=== PATIENT | male | born 1945 | race Caucasian/White ===

== ENCOUNTER 2019-10-26 20:01 | Inpatient (IN) | payer MEDICARE, MEDICAID ==
[~2019-10-26] VITALS: Ht 172.7 cm; Wt 99.9 kg
[2019-10-26] MEDS ORDERED: PROPOFOL 1000 MG/ISO-OSM 100 ML IV PRN (20:08)
[2019-10-26 21:19] LABS: D-DIMER 0.58 mg/L FEU (0.00-0.50); INR 1.1 (0.9-1.1); PROTHROMBIN TIME 10.9 SEC (9.4-11.6)
[2019-10-26 21:19] LABS: ABG A-A DIFF O2 591.9 mmHg (10-20.0); ABG BASE EXCESS -6.4 mmol/L (-2.0-3.0); ABG CARBOXYHEMOGLOBIN 0.4 % (0.0-1.5); ABG HCO3 19.6 mmol/L (22.0-26.0); ABG METHEMOGLOBIN 0.3 % (0.0-1.5); ABG OXYGEN CONTENT 20.2 mL/dL (15.0-23.0); ABG OXYGEN SATURATION 95.9 % (95.0-98.0); ABG OXYHEMOGLOBIN 95.2 % (94.0-100.0); ABG PCO2 40 mmHg (35-45); ABG TOTAL HEMOGLOBIN 15.1 G/dL (12.0-18.0); PO2, ARTERIAL BG 80.7 mmHg (75.0-83.0); SOURCE, BLOOD GAS ARTERIAL; TEMPERATURE, FAHRENHEIT, BG 98.6 FAHREN (96.0-98.6)
[2019-10-26 21:19] LABS: BASOPHILS % (AUTO) 0.4 % (0.0-2.0); EOSINOPHILS % (AUTO) 0.1 % (1.0-6.0); HEMATOCRIT 42.4 % (41-53); HEMOGLOBIN 14.5 g/dL (13.5-17.5); LYMPHOCYTES # (AUTO) 0.7 K/uL (1.0-4.8); LYMPHOCYTES % (AUTO) 9.9 % (22.0-44.0); MEAN CORPUSCULAR HEMOGLOBIN 30.5 pg (26.0-34.0); MEAN CORPUSCULAR HGB CONC 34.1 G/dL (31.0-37.0); MEAN CORPUSCULAR VOLUME 89 fL (80-100); MONOCYTES # (AUTO) 0.2 K/uL (0.1-1.0); MONOCYTES % (AUTO) 2.3 % (2.0-9.0); NEUTROPHILS # (AUTO) 5.8 K/uL (1.8-7.7); RED BLOOD CELL COUNT(AUTO) 4.75 MIL/uL (4.50-5.90); RED CELL DISTRIBUTION WIDTH 14.8 % (11.5-14.5)
[2019-10-26 21:20] LABS: ANION GAP 12 mmol/L (8-16); CALCIUM, TOTAL 8.2 mg/dL (8.8-10.5); CARBON DIOXIDE 23 mmol/L (22-29); CHLORIDE 104 mmol/L (98-107); GLOMERULAR FILTR. RATE CALC 46 mL/min (>60); GLUCOSE,RANDOM 125 mg/dL (70-110); POTASSIUM 4.4 mmol/L (3.5-5.1); SODIUM SERUM 139 mmol/L (136-145); UREA NITROGEN, BLOOD 35 mg/dL (7-18)
[2019-10-26 21:21] LABS: O2 DEVICE,BLOOD GAS VENTILATOR (ROOM AIR); PEEP,BG 12 cm H2O; SITE, BLOOD GAS LFT BRACHIAL; SPONTANEOUS VT, BG 460 ml; VT, ABG 450 ml
[2019-10-26 21:22] LABS: NEUTROPHILS % (AUTO) 87.3 % (40.0-70.0)
[2019-10-26 21:29] LABS: LACTIC ACID 2.4 mmol/L (0.4-2.0)
[2019-10-26 21:36] LABS: GLUCOSE,POINT OF CARE 121 MG/DL (70-110)
[2019-10-26 21:44] LABS: ALANINE AMINOTRANSFERASE 29 U/L (12-78); ALBUMIN 2.8 g/dL (3.4-5.0); ALKALINE PHOSPHATASE 116 U/L (46-116); ASPARTATE AMINOTRANSFERASE 67 U/L (15-37); BILIRUBIN,TOTAL 2.3 mg/dL (0.1-1.0); CREATINE KINASE, TOTAL ONLY 206 U/L (39-308); FERRITIN 668 ng/mL (26-388); LACTATE DEHYDROGENASE 472 U/L (85-227); PHOSPHORUS 4.1 mg/dL (2.5-4.9); TOTAL PROTEIN, SERUM 7.4 g/dL (6.4-8.2)
[2019-10-26] MEDS ORDERED: DEXTROSE 50%-WATER 25 GM/50 ML SYRINGE IVP PRN (22:15)
[2019-10-26] MEDS ORDERED: SODIUM CHLORIDE 0.9% 1,000 ML IV ONE (22:15)
[2019-10-26] MEDS ORDERED: ONDANSETRON HCL 4 MG/2 ML VIAL IVP PRN (22:15)
[2019-10-26] MEDS ORDERED: ACETAMINOPHEN 325 MG TABLET PO PRN (22:15)
[2019-10-26] MEDS ORDERED: SODIUM CHLORIDE 0.9% 500 ML IV ONE (22:15)
[2019-10-26] MEDS: NOREPINEPHRINE 4 MG/D5%-WATER 250 ML IV PRN (22:33)
[2019-10-26 22:39] LABS: ERYTHROCYTE SEDIMENTATION RATE 62 MM/HR (0-15)
[2019-10-26 22:46] LABS: PLATELET COUNT (AUTO) 93 K/uL (150-450)
[2019-10-26] MEDS ORDERED: AZITHROMYCIN 500 MG/NS 250 ML IV SCH (23:00)
[2019-10-27] VITALS (11 sets, daily range): BP systolic 85–137; BP diastolic 38–96
[2019-10-27] MEDS: HEPARIN SODIUM,PORCINE 5,000 UNITS/ML VIAL SQ SCH ×4 (04:09→23:44)
[2019-10-27] MEDS: FentaNYL CITRATE PF 500 MCG in DEXTROSE 5%-WATER 90 ML IV PRN ×2 (04:19→19:13)
[2019-10-27] MEDS: MIDAZOLAM HCL 100 MG in DEXTROSE 5%-WATER 180 ML IV PRN (04:21)
[2019-10-27] MEDS: NOREPINEPHRINE 4 MG/D5%-WATER 250 ML IV PRN ×3 (04:44→11:00)
[2019-10-27] MEDS: PROPOFOL 1000 MG/ISO-OSM 100 ML IV PRN ×4 (07:01→22:49)
[2019-10-27 07:43] LABS: GLUCOSE,POINT OF CARE 163 MG/DL (70-110)
[2019-10-27] MEDS: DOCUSATE SODIUM 100 MG CAPSULE PO SCH ×2 (07:46→20:58)
[2019-10-27 08:30] LABS: HEMATOCRIT 40.6 % (41-53); MEAN CORPUSCULAR HEMOGLOBIN 30.8 pg (26.0-34.0); MEAN CORPUSCULAR HGB CONC 34.5 G/dL (31.0-37.0); MEAN CORPUSCULAR VOLUME 89 fL (80-100); PLATELET COUNT (AUTO) 128 K/uL (150-450); RED BLOOD CELL COUNT(AUTO) 4.55 MIL/uL (4.50-5.90)
[2019-10-27 08:42] LABS: CALCIUM, TOTAL 7.4 mg/dL (8.8-10.5); CREATININE 1.33 mg/dL (0.60-1.30); POTASSIUM 4.3 mmol/L (3.5-5.1)
[2019-10-27 09:31] LABS: ABG A-A DIFF O2 435.2 mmHg (10-20.0); ABG BASE EXCESS -8.6 mmol/L (-2.0-3.0); ABG CARBOXYHEMOGLOBIN 0.2 % (0.0-1.5); ABG METHEMOGLOBIN 0.2 % (0.0-1.5); ABG OXYGEN CONTENT 20.6 mL/dL (15.0-23.0); ABG OXYGEN SATURATION 99.1 % (95.0-98.0); ABG OXYHEMOGLOBIN 98.7 % (94.0-100.0); ABG PCO2 41 mmHg (35-45); ABG PH 7.267 (7.35-7.450); ABG TOTAL HEMOGLOBIN 14.5 G/dL (12.0-18.0); PO2, ARTERIAL BG 237.5 mmHg (75.0-83.0); SOURCE, BLOOD GAS ARTERIAL
[2019-10-27 09:58] LABS: O2 DEVICE,BLOOD GAS VENTILATOR (ROOM AIR); PEEP,BG 12 cm H2O; SITE, BLOOD GAS A LINE; SPONTANEOUS VT, BG 432 ml; VT, ABG 450 ml
[2019-10-27] MEDS: PANTOPRAZOLE SODIUM 40 MG/VIAL IVP SCH (10:55)
[2019-10-27 11:31] LABS: BAND NEUTROPHILS % (MANUAL) 35 % (0-5); LYMPHOCYTES % (MANUAL) 8 % (22-44); MONOCYTES % (MANUAL) 3 % (2-9); SEGMENTED NEUTROPHILS % 54 % (40-70)
[2019-10-27 12:36] LABS: GLUCOSE,POINT OF CARE 172 MG/DL (70-110)
[2019-10-27] MEDS ORDERED: REMDESIVIR **INVESTIGATIONAL** 200 MG in SODIUM CHLORIDE 0.9% 210 ML IV ONE (15:00)
[2019-10-27] MEDS ORDERED: SODIUM CHLORIDE 0.9% 1,000 ML IV ONE (17:30)
[2019-10-27 18:47] LABS: GLUCOSE,POINT OF CARE 159 MG/DL (70-110)
[2019-10-28] VITALS: BP 101/44
[2019-10-28] MEDS: PROPOFOL 1000 MG/ISO-OSM 100 ML IV PRN ×2 (02:50→20:07)
[2019-10-28 04:00] VITALS: BP 128/45
[2019-10-28 06:03] LABS: BASOPHILS % (AUTO) 0.4 % (0.0-2.0); EOSINOPHILS % (AUTO) 0.2 % (1.0-6.0); HEMATOCRIT 36.5 % (41-53); HEMOGLOBIN 12.6 g/dL (13.5-17.5); LYMPHOCYTES # (AUTO) 0.8 K/uL (1.0-4.8); LYMPHOCYTES % (AUTO) 9.1 % (22.0-44.0); MEAN CORPUSCULAR HEMOGLOBIN 30.6 pg (26.0-34.0); MEAN CORPUSCULAR HGB CONC 34.6 G/dL (31.0-37.0); MEAN CORPUSCULAR VOLUME 89 fL (80-100); MONOCYTES # (AUTO) 0.2 K/uL (0.1-1.0); MONOCYTES % (AUTO) 2.4 % (2.0-9.0); NEUTROPHILS # (AUTO) 7.4 K/uL (1.8-7.7); PLATELET COUNT (AUTO) 106 K/uL (150-450); RED BLOOD CELL COUNT(AUTO) 4.12 MIL/uL (4.50-5.90); RED CELL DISTRIBUTION WIDTH 15.3 % (11.5-14.5)
[2019-10-28 06:37] LABS: ALBUMIN 2.1 g/dL (3.4-5.0); BILIRUBIN,TOTAL 2.3 mg/dL (0.1-1.0); C-REACTIVE PROTEIN QUANT 20.21 mg/dL (0.00-0.30); CALCIUM, TOTAL 7.2 mg/dL (8.8-10.5); CREATININE 1.21 mg/dL (0.60-1.30); POTASSIUM 4.4 mmol/L (3.5-5.1); TOTAL PROTEIN, SERUM 6.2 g/dL (6.4-8.2)
[2019-10-28 06:55] LABS: NEUTROPHILS % (AUTO) 87.9 % (40.0-70.0)
[2019-10-28 07:49] LABS: GLUCOSE,POINT OF CARE 131 MG/DL (70-110)
[2019-10-28 07:49] LABS: GLUCOSE,POINT OF CARE 144 MG/DL (70-110)
[2019-10-28 08:00] VITALS: BP 126/54
[2019-10-28] MEDS: HEPARIN SODIUM,PORCINE 5,000 UNITS/ML VIAL SQ SCH ×3 (08:00→23:31)
[2019-10-28] MEDS: PANTOPRAZOLE SODIUM 40 MG/VIAL IVP SCH (10:23)
[2019-10-28] MEDS: DOCUSATE SODIUM 100 MG CAPSULE PO SCH ×2 (10:24→20:04)
[2019-10-28 11:08] LABS: ABG A-A DIFF O2 316.7 mmHg (10-20.0); ABG BASE EXCESS -4.1 mmol/L (-2.0-3.0); ABG CARBOXYHEMOGLOBIN 0.7 % (0.0-1.5); ABG HCO3 21.4 mmol/L (22.0-26.0); ABG METHEMOGLOBIN 0.1 % (0.0-1.5); ABG OXYGEN SATURATION 92.2 % (95.0-98.0); ABG OXYHEMOGLOBIN 91.5 % (94.0-100.0); ABG PCO2 39 mmHg (35-45); ABG PH 7.357 (7.35-7.450); ABG TOTAL HEMOGLOBIN 13.2 G/dL (12.0-18.0); SOURCE, BLOOD GAS ARTERIAL; TEMPERATURE, FAHRENHEIT, BG 100.1 FAHREN (96.0-98.6)
[2019-10-28 12:00] VITALS: BP 118/56
[2019-10-28 14:53] LABS: SITE, BLOOD GAS A LINE
[2019-10-28 14:56] LABS: O2 DEVICE,BLOOD GAS VENTILATOR (ROOM AIR); PEEP,BG 10 cm H2O; SPONTANEOUS VT, BG 469 ml; VT, ABG 450 ml
[2019-10-28] MEDS: REMDESIVIR **INVESTIGATIONAL** 100 MG in SODIUM CHLORIDE 0.9% 230 ML IV SCH (15:12)
[2019-10-28 16:00] VITALS: BP 113/59
[2019-10-28] MEDS ORDERED: HEPARIN SODIUM,PORCINE 1,000 UNITS/ML VIAL ONE (16:51)
[2019-10-28 19:01] LABS: GLUCOSE,POINT OF CARE 147 MG/DL (70-110)
[2019-10-28] MEDS: FentaNYL CITRATE PF 500 MCG in DEXTROSE 5%-WATER 90 ML IV PRN (19:20)
[2019-10-28 20:00] VITALS: BP 131/49
[2019-10-28] MEDS: CISATRACURIUM BESYLATE 50 MG in DEXTROSE 5%-WATER 245 ML IV PRN ×2 (22:51→23:29)
[2019-10-28] MEDS: INSULIN LISPRO 100 UNITS/ML SQ PRN (23:58)
[2019-10-29] VITALS: BP 107/47
[2019-10-29 00:26] LABS: GLUCOSE,POINT OF CARE 186 MG/DL (70-110)
[2019-10-29] MEDS: PROPOFOL 1000 MG/ISO-OSM 100 ML IV PRN ×4 (00:27→22:01)
[2019-10-29 04:00] VITALS: BP 100/46
[2019-10-29 05:33] LABS: BASOPHILS % (AUTO) 0.4 % (0.0-2.0); EOSINOPHILS % (AUTO) 0.1 % (1.0-6.0); HEMATOCRIT 36.8 % (41-53); HEMOGLOBIN 12.6 g/dL (13.5-17.5); LYMPHOCYTES # (AUTO) 0.5 K/uL (1.0-4.8); LYMPHOCYTES % (AUTO) 6.5 % (22.0-44.0); MEAN CORPUSCULAR HEMOGLOBIN 30.4 pg (26.0-34.0); MEAN CORPUSCULAR HGB CONC 34.1 G/dL (31.0-37.0); MEAN CORPUSCULAR VOLUME 89 fL (80-100); MONOCYTES # (AUTO) 0.2 K/uL (0.1-1.0); MONOCYTES % (AUTO) 2.2 % (2.0-9.0); NEUTROPHILS # (AUTO) 7.6 K/uL (1.8-7.7); PLATELET COUNT (AUTO) 119 K/uL (150-450); RED BLOOD CELL COUNT(AUTO) 4.14 MIL/uL (4.50-5.90); RED CELL DISTRIBUTION WIDTH 15.7 % (11.5-14.5)
[2019-10-29] MEDS: INSULIN LISPRO 100 UNITS/ML SQ PRN (05:46)
[2019-10-29] MEDS: FentaNYL CITRATE PF 500 MCG in DEXTROSE 5%-WATER 90 ML IV PRN (05:50)
[2019-10-29 05:51] LABS: NEUTROPHILS % (AUTO) 90.8 % (40.0-70.0)
[2019-10-29 06:05] LABS: ALBUMIN 1.9 g/dL (3.4-5.0); BILIRUBIN,TOTAL 1.9 mg/dL (0.1-1.0); CALCIUM, TOTAL 7.4 mg/dL (8.8-10.5); CREATININE 1.36 mg/dL (0.60-1.30); POTASSIUM 4.7 mmol/L (3.5-5.1); TOTAL PROTEIN, SERUM 6.2 g/dL (6.4-8.2)
[2019-10-29] MEDS: CISATRACURIUM BESYLATE 50 MG in DEXTROSE 5%-WATER 245 ML IV PRN ×2 (07:00→19:44)
[2019-10-29 07:02] LABS: C-REACTIVE PROTEIN QUANT 24.62 mg/dL (0.00-0.30)
[2019-10-29 07:18] LABS: GLUCOSE,POINT OF CARE 145 MG/DL (70-110)
[2019-10-29 08:00] VITALS: BP 102/48
[2019-10-29] MEDS: PANTOPRAZOLE SODIUM 40 MG/VIAL IVP SCH (10:15)
[2019-10-29] MEDS: HEPARIN SODIUM,PORCINE 5,000 UNITS/ML VIAL SQ SCH (10:15)
[2019-10-29] MEDS: DOCUSATE SODIUM 100 MG CAPSULE PO SCH ×2 (10:15→19:54)
[2019-10-29] MEDS: ZINC SULFATE 220 MG CAPSULE PO SCH ×2 (11:42→19:55)
[2019-10-29 12:00] VITALS: BP 121/44
[2019-10-29] MEDS: REMDESIVIR **INVESTIGATIONAL** 100 MG in SODIUM CHLORIDE 0.9% 230 ML IV SCH (14:49)
[2019-10-29 16:00] VITALS: BP 97/38
[2019-10-29 20:00] VITALS: BP 113/48
[2019-10-30] VITALS (11 sets, daily range): BP systolic 96–152; BP diastolic 40–59
[2019-10-30 05:02] LABS: GLUCOSE,POINT OF CARE 201 MG/DL (70-110)
[2019-10-30] MEDS: PROPOFOL 1000 MG/ISO-OSM 100 ML IV PRN ×3 (05:11→22:40)
[2019-10-30] MEDS: CISATRACURIUM BESYLATE 50 MG in DEXTROSE 5%-WATER 245 ML IV PRN (06:02)
[2019-10-30] MEDS: INSULIN LISPRO 100 UNITS/ML SQ PRN ×3 (06:03→18:48)
[2019-10-30 06:19] LABS: BASOPHILS % (AUTO) 0.3 % (0.0-2.0); EOSINOPHILS % (AUTO) 0.3 % (1.0-6.0); HEMATOCRIT 38.1 % (41-53); HEMOGLOBIN 12.8 g/dL (13.5-17.5); LYMPHOCYTES # (AUTO) 0.4 K/uL (1.0-4.8); MEAN CORPUSCULAR HEMOGLOBIN 30.2 pg (26.0-34.0); MEAN CORPUSCULAR HGB CONC 33.6 G/dL (31.0-37.0); MEAN CORPUSCULAR VOLUME 90 fL (80-100); MONOCYTES # (AUTO) 0.2 K/uL (0.1-1.0); MONOCYTES % (AUTO) 3.1 % (2.0-9.0); NEUTROPHILS # (AUTO) 6.2 K/uL (1.8-7.7); PLATELET COUNT (AUTO) 120 K/uL (150-450); RED BLOOD CELL COUNT(AUTO) 4.24 MIL/uL (4.50-5.90); RED CELL DISTRIBUTION WIDTH 15.8 % (11.5-14.5)
[2019-10-30 06:52] LABS: NEUTROPHILS % (AUTO) 90.3 % (40.0-70.0)
[2019-10-30 07:12] LABS: ALBUMIN 1.8 g/dL (3.4-5.0); BILIRUBIN,TOTAL 1.8 mg/dL (0.1-1.0); C-REACTIVE PROTEIN QUANT 23.9 mg/dL (0.00-0.30); CALCIUM, TOTAL 7.5 mg/dL (8.8-10.5); CREATININE 1.25 mg/dL (0.60-1.30); TOTAL PROTEIN, SERUM 6.3 g/dL (6.4-8.2)
[2019-10-30] MEDS: HEPARIN SODIUM,PORCINE 5,000 UNITS/ML VIAL SQ SCH ×3 (08:09→17:18)
[2019-10-30] MEDS: DOCUSATE SODIUM 100 MG CAPSULE PO SCH ×2 (08:09→20:49)
[2019-10-30] MEDS: PANTOPRAZOLE SODIUM 40 MG/VIAL IVP SCH (08:09)
[2019-10-30 08:37] LABS: GLUCOMETER DEV NAME(LOC) 4E.2; GLUCOSE,POINT OF CARE 123 MG/DL (70-110)
[2019-10-30 08:37] LABS: GLUCOMETER DEV NAME(LOC) 4E.2; GLUCOSE,POINT OF CARE 129 MG/DL (70-110)
[2019-10-30 08:38] LABS: GLUCOMETER DEV NAME(LOC) 4E.2; GLUCOSE,POINT OF CARE 198 MG/DL (70-110)
[2019-10-30] MEDS: ZINC SULFATE 220 MG CAPSULE PO SCH ×2 (09:00→20:49)
[2019-10-30] MEDS: REMDESIVIR **INVESTIGATIONAL** 100 MG in SODIUM CHLORIDE 0.9% 230 ML IV SCH (14:00)
[2019-10-30] MEDS: FentaNYL CITRATE PF 500 MCG in DEXTROSE 5%-WATER 90 ML IV PRN (23:03)
[2019-10-30] MEDS ORDERED: 0.9% SODIUM CHLORIDE 15 ML NEB SOLUTION NEB ONE (23:48)
[2019-10-31] VITALS (11 sets, daily range): BP systolic 103–138; BP diastolic 42–91
[2019-10-31] MEDS: HEPARIN SODIUM,PORCINE 5,000 UNITS/ML VIAL SQ SCH ×3 (01:20→16:01)
[2019-10-31] MEDS: NOREPINEPHRINE 4 MG/D5%-WATER 250 ML IV PRN (02:31)
[2019-10-31] MEDS ORDERED: PROPOFOL 1000 MG/ISO-OSM 100 ML IV ONE (02:38)
[2019-10-31] MEDS: PROPOFOL 1000 MG/ISO-OSM 100 ML IV PRN ×4 (05:26→21:23)
[2019-10-31 05:33] LABS: GLUCOSE,POINT OF CARE 127 MG/DL (70-110)
[2019-10-31 05:49] LABS: HEMATOCRIT 38.6 % (41-53); HEMOGLOBIN 13.3 g/dL (13.5-17.5); MEAN CORPUSCULAR HEMOGLOBIN 30.8 pg (26.0-34.0); MEAN CORPUSCULAR HGB CONC 34.5 G/dL (31.0-37.0); MEAN CORPUSCULAR VOLUME 89 fL (80-100); PLATELET COUNT (AUTO) 141 K/uL (150-450); RED BLOOD CELL COUNT(AUTO) 4.33 MIL/uL (4.50-5.90); RED CELL DISTRIBUTION WIDTH 15.9 % (11.5-14.5)
[2019-10-31 06:01] LABS: GLUCOMETER DEV NAME(LOC) 4E.2; GLUCOSE,POINT OF CARE 154 MG/DL (70-110)
[2019-10-31 06:06] LABS: ALBUMIN 1.8 g/dL (3.4-5.0); BILIRUBIN,TOTAL 2.7 mg/dL (0.1-1.0); C-REACTIVE PROTEIN QUANT 23.11 mg/dL (0.00-0.30); CALCIUM, TOTAL 7.7 mg/dL (8.8-10.5); CREATININE 1.41 mg/dL (0.60-1.30); POTASSIUM 4.7 mmol/L (3.5-5.1); TOTAL PROTEIN, SERUM 6.3 g/dL (6.4-8.2)
[2019-10-31 06:58] LABS: BAND NEUTROPHILS % (MANUAL) 21 % (0-5); LYMPHOCYTES % (MANUAL) 6 % (22-44); MONOCYTES % (MANUAL) 1 % (2-9); SEGMENTED NEUTROPHILS % 72 % (40-70)
[2019-10-31 07:07] LABS: GLUCOMETER DEV NAME(LOC) 4E.2; GLUCOSE,POINT OF CARE 158 MG/DL (70-110)
[2019-10-31] MEDS: PANTOPRAZOLE SODIUM 40 MG/VIAL IVP SCH (09:45)
[2019-10-31] MEDS: ZINC SULFATE 220 MG CAPSULE PO SCH ×2 (09:46→21:09)
[2019-10-31] MEDS: FentaNYL CITRATE PF 500 MCG in DEXTROSE 5%-WATER 90 ML IV PRN (09:46)
[2019-10-31] MEDS: DOCUSATE SODIUM 100 MG CAPSULE PO SCH ×2 (09:48→21:09)
[2019-10-31 11:50] LABS: GLUCOMETER DEV NAME(LOC) 4E.2; GLUCOSE,POINT OF CARE 187 MG/DL (70-110)
[2019-10-31] MEDS: INSULIN LISPRO 100 UNITS/ML SQ PRN ×2 (13:03→18:09)
[2019-10-31] MEDS: REMDESIVIR **INVESTIGATIONAL** 100 MG in SODIUM CHLORIDE 0.9% 230 ML IV SCH (14:06)
[2019-10-31] MEDS: CISATRACURIUM BESYLATE 50 MG in DEXTROSE 5%-WATER 245 ML IV PRN (17:09)
[2019-10-31 18:19] LABS: GLUCOMETER DEV NAME(LOC) 4E.2; GLUCOSE,POINT OF CARE 167 MG/DL (70-110)
[2019-11-01] VITALS (7 sets, daily range): BP systolic 95–127; BP diastolic 42–64
[2019-11-01] MEDS: HEPARIN SODIUM,PORCINE 5,000 UNITS/ML VIAL SQ SCH ×4 (00:25→23:43)
[2019-11-01 01:00] LABS: GLUCOSE,POINT OF CARE 164 MG/DL (70-110)
[2019-11-01] MEDS: FentaNYL CITRATE PF 500 MCG in DEXTROSE 5%-WATER 90 ML IV PRN ×2 (02:18→19:52)
[2019-11-01] MEDS: CISATRACURIUM BESYLATE 50 MG in DEXTROSE 5%-WATER 245 ML IV PRN ×3 (02:24→21:10)
[2019-11-01] MEDS: MIDAZOLAM HCL 100 MG in DEXTROSE 5%-WATER 180 ML IV PRN (03:02)
[2019-11-01] MEDS: PROPOFOL 1000 MG/ISO-OSM 100 ML IV PRN ×5 (03:22→20:28)
[2019-11-01 05:49] LABS: HEMATOCRIT 42.2 % (41-53); HEMOGLOBIN 14.1 g/dL (13.5-17.5); MEAN CORPUSCULAR HEMOGLOBIN 30.5 pg (26.0-34.0); MEAN CORPUSCULAR HGB CONC 33.5 G/dL (31.0-37.0); MEAN CORPUSCULAR VOLUME 91 fL (80-100); PLATELET COUNT (AUTO) 132 K/uL (150-450); RED BLOOD CELL COUNT(AUTO) 4.64 MIL/uL (4.50-5.90); RED CELL DISTRIBUTION WIDTH 15.9 % (11.5-14.5)
[2019-11-01 06:19] LABS: GLUCOSE,POINT OF CARE 163 MG/DL (70-110)
[2019-11-01 06:34] LABS: ALBUMIN 1.8 g/dL (3.4-5.0); CALCIUM, TOTAL 7.9 mg/dL (8.8-10.5); CREATININE 1.69 mg/dL (0.60-1.30); POTASSIUM 5.6 mmol/L (3.5-5.1); TOTAL PROTEIN, SERUM 7.1 g/dL (6.4-8.2)
[2019-11-01] MEDS: INSULIN LISPRO 100 UNITS/ML SQ PRN ×3 (06:48→17:49)
[2019-11-01 06:52] LABS: C-REACTIVE PROTEIN QUANT 44.41 mg/dL (0.00-0.30)
[2019-11-01 07:04] LABS: GLUCOSE,POINT OF CARE 196 MG/DL (70-110)
[2019-11-01] MEDS ORDERED: SODIUM POLYSTYRENE SULFONATE 15 GM/60 ML SUSPENSION BOTTLE PR ONE (08:45)
[2019-11-01] MEDS: DOCUSATE SODIUM 100 MG CAPSULE PO SCH ×2 (09:00→21:00)
[2019-11-01] MEDS: ZINC SULFATE 220 MG CAPSULE PO SCH ×2 (09:17→21:00)
[2019-11-01] MEDS: PANTOPRAZOLE SODIUM 40 MG/VIAL IVP SCH (09:17)
[2019-11-01 11:36] LABS: BAND NEUTROPHILS % (MANUAL) 37 % (0-5); LYMPHOCYTES % (MANUAL) 8 % (22-44); MONOCYTES % (MANUAL) 4 % (2-9); SEGMENTED NEUTROPHILS % 51 % (40-70)
[2019-11-01] MEDS ORDERED: *CLINICAL-CEFEPIME DOSING CLINICAL ONE (14:00)
[2019-11-01] MEDS ORDERED: MetroNIDAZOLE 500 MG/NACL 100 ML IV SCH (14:00)
[2019-11-01] MEDS: NOREPINEPHRINE 4 MG/D5%-WATER 250 ML IV PRN ×2 (14:30→22:01)
[2019-11-01] MEDS: REMDESIVIR **INVESTIGATIONAL** 100 MG in SODIUM CHLORIDE 0.9% 230 ML IV SCH (14:46)
[2019-11-01] MEDS ORDERED: DAPTOMYCIN 450 MG in SODIUM CHLORIDE 0.9% 50 ML IV SCH (15:00)
[2019-11-01] MEDS ORDERED: SODIUM CHLORIDE 0.9% 500 ML IV ONE (15:38)
[2019-11-01] MEDS: CEFEPIME HCL 2 GM in DEXTROSE 5%-WATER 50 ML IV SCH (15:57)
[2019-11-01 17:31] LABS: GLUCOSE,POINT OF CARE 197 MG/DL (70-110)
[2019-11-01 17:54] LABS: GLUCOSE,POINT OF CARE 202 MG/DL (70-110)
[2019-11-01 20:02] LABS: APPEARANCE,URINE TURBID (CLEAR); GLUCOSE, URINE (UA) NEGATIVE (NEGATIVE); KETONES,URINE NEGATIVE (NEGATIVE); LEUKOCYTE ESTERASE ,URINE MODERATE (NEGATIVE); NITRATE,URINE NEGATIVE (NEGATIVE); OCCULT BLOOD,URINE NEGATIVE (NEGATIVE); PROTEIN,URINE POS 1+ (NEGATIVE)
[2019-11-01 20:04] LABS: BILIRUBIN,URINE PRELIM. POSITIVE (NEGATIVE)
[2019-11-01 20:16] LABS: RBC,URINE 0-2 /HPF (0-2)
[2019-11-01 20:17] LABS: BACTERIA,URINE Many /HPF (None Seen); WBC,URINE 26-50 /HPF (0-5)
[2019-11-01 20:18] LABS: SQUAMOUS EPITHELIAL CELL,UR Few /LPF (None Seen)
[2019-11-01] MEDS ORDERED: LEVOFLOXACIN 750 MG/D5% WATER 150 ML IV SCH (23:00)
[2019-11-01 23:33] LABS: GLUCOSE,POINT OF CARE 191 MG/DL (70-110)
[2019-11-02] VITALS: BP 117/53
[2019-11-02] MEDS: CISATRACURIUM BESYLATE 50 MG in DEXTROSE 5%-WATER 245 ML IV PRN ×4 (00:02→11:14)
[2019-11-02] MEDS: INSULIN LISPRO 100 UNITS/ML SQ PRN ×4 (00:04→19:01)
[2019-11-02] MEDS: PROPOFOL 1000 MG/ISO-OSM 100 ML IV PRN ×2 (00:51→06:13)
[2019-11-02] MEDS: CEFEPIME HCL 2 GM in DEXTROSE 5%-WATER 50 ML IV SCH (03:12)
[2019-11-02] MEDS: NOREPINEPHRINE 4 MG/D5%-WATER 250 ML IV PRN ×2 (03:19→17:06)
[2019-11-02 04:00] VITALS: BP 110/52
[2019-11-02 06:49] LABS: BILIRUBIN,TOTAL 3.5 mg/dL (0.1-1.0); CALCIUM, TOTAL 7.3 mg/dL (8.8-10.5); CREATININE 3.28 mg/dL (0.60-1.30); POTASSIUM 5.9 mmol/L (3.5-5.1)
[2019-11-02 07:22] LABS: ALBUMIN 1.4 g/dL (3.4-5.0); C-REACTIVE PROTEIN QUANT 26.28 mg/dL (0.00-0.30)
[2019-11-02 08:00] VITALS: BP 110/50
[2019-11-02 08:11] LABS: GLUCOMETER DEV NAME(LOC) 4E.2; GLUCOSE,POINT OF CARE 214 MG/DL (70-110)
[2019-11-02] MEDS ORDERED: SODIUM POLYSTYRENE SULFONATE 15 GM/60 ML SUSPENSION BOTTLE PR ONE (08:30)
[2019-11-02] MEDS: DOCUSATE SODIUM 100 MG CAPSULE PO SCH ×2 (09:33→21:20)
[2019-11-02] MEDS: HEPARIN SODIUM,PORCINE 5,000 UNITS/ML VIAL SQ SCH ×2 (09:33→16:00)
[2019-11-02] MEDS: PANTOPRAZOLE SODIUM 40 MG/VIAL IVP SCH (09:33)
[2019-11-02] MEDS: ZINC SULFATE 220 MG CAPSULE PO SCH ×2 (09:35→21:21)
[2019-11-02 12:00] VITALS: BP 92/39
[2019-11-02] MEDS ORDERED: *CLINICAL-RX DOSING [ENTER DRUG IN COMMENTS] CLINICAL ONE (12:00)
[2019-11-02 12:23] LABS: SOURCE, BLOOD GAS ARTERIAL; TEMPERATURE, FAHRENHEIT, BG 98.6 FAHREN (96.0-98.6)
[2019-11-02 12:28] LABS: ABG A-A DIFF O2 562.8 mmHg (10-20.0); ABG BASE EXCESS -15.7 mmol/L (-2.0-3.0); ABG CARBOXYHEMOGLOBIN 0.6 % (0.0-1.5); ABG HCO3 11.8 mmol/L (22.0-26.0); ABG METHEMOGLOBIN 0.6 % (0.0-1.5); ABG OXYGEN CONTENT 17.4 mL/dL (15.0-23.0); ABG OXYHEMOGLOBIN 88.9 % (94.0-100.0); ABG TOTAL HEMOGLOBIN 13.9 G/dL (12.0-18.0); PO2, ARTERIAL BG 68.8 mmHg (75.0-83.0)
[2019-11-02 12:29] LABS: ABG PH 6.931 (7.35-7.450)
[2019-11-02 12:30] LABS: ABG PCO2 81 mmHg (35-45); O2 DEVICE,BLOOD GAS VENTILATOR (ROOM AIR); SITE, BLOOD GAS A-LINE; VENT MODE, BG Press. Reg. Vol. Con (ROOM AIR)
[2019-11-02 12:31] LABS: PEEP,BG 8 cm H2O; VT, ABG 450 ml
[2019-11-02] MEDS ORDERED: MEROPENEM 1 GM in SODIUM CHLORIDE 0.9% 100 ML IV ONE (13:00)
[2019-11-02] MEDS ORDERED: HEPARIN SODIUM,PORCINE 1,000 UNITS/ML VIAL ONE (13:25)
[2019-11-02 13:30] LABS: GLUCOSE,POINT OF CARE 190 MG/DL (70-110)
[2019-11-02] MEDS: FentaNYL CITRATE PF 500 MCG in DEXTROSE 5%-WATER 90 ML IV PRN (13:53)
[2019-11-02] MEDS: SODIUM BICARBONATE 150 MEQ in DEXTROSE 5%-WATER 1,000 ML IV SCH (14:00)
[2019-11-02 14:57] LABS: ABG A-A DIFF O2 545.3 mmHg (10-20.0); ABG BASE EXCESS -15.9 mmol/L (-2.0-3.0); ABG CARBOXYHEMOGLOBIN 0.2 % (0.0-1.5); ABG METHEMOGLOBIN 0.5 % (0.0-1.5); ABG OXYGEN CONTENT 18.2 mL/dL (15.0-23.0); ABG OXYGEN SATURATION 95.9 % (95.0-98.0); ABG OXYHEMOGLOBIN 95.2 % (94.0-100.0); ABG TOTAL HEMOGLOBIN 13.5 G/dL (12.0-18.0); PO2, ARTERIAL BG 95.9 mmHg (75.0-83.0); SOURCE, BLOOD GAS ARTERIAL; TEMPERATURE, FAHRENHEIT, BG 98.6 FAHREN (96.0-98.6)
[2019-11-02 14:58] LABS: ABG PCO2 72 mmHg (35-45); ABG PH 6.964 (7.35-7.450); O2 DEVICE,BLOOD GAS VENTILATOR (ROOM AIR); PEEP,BG 14 cm H2O; SITE, BLOOD GAS A-LINE; VENT MODE, BG Press. Reg. Vol. Con (ROOM AIR); VT, ABG 450 ml
[2019-11-02] MEDS ORDERED: SODIUM BICARBONATE [ADULT] 8.4% 50 MEQ/50 ML SYRINGE IVP ONE (15:15)
[2019-11-02 16:00] VITALS: BP 90/44
[2019-11-02] MEDS ORDERED: SODIUM CHLORIDE 0.9% 500 ML IV ONE ×2 (16:51→17:13)
[2019-11-02 16:53] LABS: ABG A-A DIFF O2 539.4 mmHg (10-20.0); ABG BASE EXCESS -11.6 mmol/L (-2.0-3.0); ABG CARBOXYHEMOGLOBIN 0.1 % (0.0-1.5); ABG HCO3 15.4 mmol/L (22.0-26.0); ABG METHEMOGLOBIN 0.5 % (0.0-1.5); ABG OXYHEMOGLOBIN 97.4 % (94.0-100.0); ABG PCO2 54 mmHg (35-45); PO2, ARTERIAL BG 119.6 mmHg (75.0-83.0); SOURCE, BLOOD GAS ARTERIAL; TEMPERATURE, FAHRENHEIT, BG 98.6 FAHREN (96.0-98.6)
[2019-11-02 16:54] LABS: ABG PH 7.131 (7.35-7.450); O2 DEVICE,BLOOD GAS VENTILATOR (ROOM AIR); PEEP,BG 14 cm H2O; SITE, BLOOD GAS A-LINE; VENT MODE, BG Press. Reg. Vol. Con (ROOM AIR); VT, ABG 500 ml
[2019-11-02 17:15] LABS: POTASSIUM 6.1 mmol/L (3.5-5.1)
[2019-11-02 20:00] VITALS: BP 90/40
[2019-11-02 20:55] LABS: GLUCOMETER DEV NAME(LOC) 4E.2; GLUCOSE,POINT OF CARE 162 MG/DL (70-110)
[2019-11-02] MEDS ORDERED: PHENYLEPHRINE HCL 800 MG in DEXTROSE 5%-WATER 170 ML IV PRN (21:15)
[2019-11-03] VITALS: BP 94/43
[2019-11-03] MEDS: HEPARIN SODIUM,PORCINE 5,000 UNITS/ML VIAL SQ SCH (00:47)
[2019-11-03] MEDS: INSULIN LISPRO 100 UNITS/ML SQ PRN (00:48)
[2019-11-03] MEDS ORDERED: MEROPENEM 500 MG in SODIUM CHLORIDE 0.9% 50 ML IV SCH (01:00)
[2019-11-03 01:28] LABS: GLUCOSE,POINT OF CARE 166 MG/DL (70-110)
[2019-11-03] MEDS ORDERED: AMIODARONE HCL 150 MG in DEXTROSE 5%-WATER 97 ML IV ONE (01:45)
[2019-11-03] MEDS ORDERED: CISATRACURIUM BESYLATE 20 MG in DEXTROSE 5%-WATER 98 ML IV PRN (01:45)
[2019-11-03] MEDS ORDERED: AMIODARONE HCL 360 MG in DEXTROSE 5%-WATER 242.8 ML IV ONE (01:45)
[2019-11-03] MEDS ORDERED: SODIUM CHLORIDE 0.9% 250 ML IV ONE (02:14)
[2019-11-03] MEDS: VASOPRESSIN 40 UNITS in DEXTROSE 5%-WATER 98 ML IV PRN ×2 (02:22→02:35)
[2019-11-03] MEDS: DOPamine HCL 400 MG/D5%-WATER 250 ML IV PRN ×2 (02:23→06:16)
[2019-11-03] MEDS: CISATRACURIUM BESYLATE 50 MG in DEXTROSE 5%-WATER 245 ML IV PRN ×2 (02:24→06:17)
[2019-11-03] MEDS: NOREPINEPHRINE 4 MG/D5%-WATER 250 ML IV PRN ×2 (02:27→06:16)
[2019-11-03] MEDS ORDERED: EPINEPHrine 2 MG in DEXTROSE 5%-WATER 248 ML IV PRN ×2 (03:45→04:00)
[2019-11-03 03:56] LABS: SOURCE, BLOOD GAS ARTERIAL
[2019-11-03 03:59] LABS: ABG CARBOXYHEMOGLOBIN 0.7 % (0.0-1.5); ABG OXYHEMOGLOBIN 82.1 % (94.0-100.0)
[2019-11-03 04:00] VITALS: BP 76/40
[2019-11-03 04:02] LABS: ABG A-A DIFF O2 599.6 mmHg (10-20.0); ABG METHEMOGLOBIN 0.4 % (0.0-1.5); ABG OXYGEN CONTENT 17.7 mL/dL (15.0-23.0); ABG PCO2 58 mmHg (35-45); ABG PH 6.938 (7.35-7.450); ABG TOTAL HEMOGLOBIN 15.3 G/dL (12.0-18.0); PO2, ARTERIAL BG 57.3 mmHg (75.0-83.0)
[2019-11-03 04:03] LABS: ABG HCO3 9.7 mmol/L (22.0-26.0); O2 DEVICE,BLOOD GAS VENTILATOR (ROOM AIR); SITE, BLOOD GAS ARTERIAL LINE
[2019-11-03 04:04] LABS: PEEP,BG 16 cm H2O; VT, ABG 500 ml
[2019-11-03] MEDS: SODIUM BICARBONATE 150 MEQ in DEXTROSE 5%-WATER 1,000 ML IV SCH (04:16)
[2019-11-03 06:04] LABS: HEMATOCRIT 43.6 % (41-53); HEMOGLOBIN 14.1 g/dL (13.5-17.5); MEAN CORPUSCULAR HEMOGLOBIN 30.8 pg (26.0-34.0); MEAN CORPUSCULAR HGB CONC 32.3 G/dL (31.0-37.0); MEAN CORPUSCULAR VOLUME 96 fL (80-100); PLATELET COUNT (AUTO) 116 K/uL (150-450); RED BLOOD CELL COUNT(AUTO) 4.57 MIL/uL (4.50-5.90)
[2019-11-03 06:17] VITALS: BP 64/32
[2019-11-03 07:05] LABS: ALBUMIN 0.9 g/dL (3.4-5.0); BILIRUBIN,TOTAL 3.1 mg/dL (0.1-1.0); C-REACTIVE PROTEIN QUANT 18.58 mg/dL (0.00-0.30); CREATININE 4.04 mg/dL (0.60-1.30); TOTAL PROTEIN, SERUM 5.3 g/dL (6.4-8.2)
[2019-11-03 07:16] LABS: POTASSIUM 6.1 mmol/L (3.5-5.1)
[2019-11-03] MEDS ORDERED: AMIODARONE HCL 540 MG in DEXTROSE 5%-WATER 239.2 ML IV ONE (07:45)
[2019-11-03 09:30] LABS: BAND NEUTROPHILS % (MANUAL) 68 % (0-5); METAMYELOCYTES % 10 % (0-0); SEGMENTED NEUTROPHILS % 22 % (40-70)
[2019-11-03 09:32] LABS: CORRECTED WHITE BLOOD COUNT 32.3 K/uL (4.5-11.0)
[2019-11-04] MEDS ORDERED: AMIODARONE HCL 750 MG in DEXTROSE 5%-WATER 485 ML IV SCH (01:35)
== END 2019-11-03 06:50 | disposition expired | DRG 870 ==
LOC: EMS 20:01 → ICU 22:06
PROVIDERS: ADMIT Internal Medicine; ATTEND Internal Medicine
PROC: 0BH17EZ Insertion of Endotracheal Airway into Trachea, Via Natural or Artificial Opening (ICD-10-PCS; 2019-10-26)
PROC: 5A1955Z Respiratory Ventilation, Greater than 96 Consecutive Hours (ICD-10-PCS; 2019-10-26)
PROC: 302 Administration, Circulatory, Transfusion (ICD-10-PCS; 2019-10-27)
PROC: 05HY33Z Insertion of Infusion Device into Upper Vein, Percutaneous Approach (ICD-10-PCS; 2019-10-29)
PROC: B54MZZA Ultrasonography of Right Upper Extremity Veins, Guidance (ICD-10-PCS; 2019-10-29)
PROC: 05HM33Z Insertion of Infusion Device into Right Internal Jugular Vein, Percutaneous Approach (ICD-10-PCS; principal; 2019-10-31)
PROC: B543ZZA Ultrasonography of Right Jugular Veins, Guidance (ICD-10-PCS; 2019-10-31)
PROC: 03HY32Z Insertion of Monitoring Device into Upper Artery, Percutaneous Approach (ICD-10-PCS; 2019-10-31)
PROC: 4A133B1 Monitoring of Arterial Pressure, Peripheral, Percutaneous Approach (ICD-10-PCS; 2019-10-31)
PROC: 4A133J1 Monitoring of Arterial Pulse, Peripheral, Percutaneous Approach (ICD-10-PCS; 2019-10-31)
PROC: B34JZZZ Ultrasonography of Left Upper Extremity Arteries (ICD-10-PCS; 2019-10-31)
PROC: 06HY33Z Insertion of Infusion Device into Lower Vein, Percutaneous Approach (ICD-10-PCS; 2019-11-02)
PROC: 5A1D70Z Performance of Urinary Filtration, Intermittent, Less than 6 Hours Per Day (ICD-10-PCS; 2019-11-02)
PROC: 5A12012 Performance of Cardiac Output, Single, Manual (ICD-10-PCS; 2019-11-03)
DX: A41.9 Sepsis, unspecified organism (principal); U07.1 COVID-19; J12.89 Other viral pneumonia; J96.01 Acute respiratory failure with hypoxia; E43 Unspecified severe protein-calorie malnutrition; N17.9 Acute kidney failure, unspecified; Z99.11 Dependence on respirator [ventilator] status; K76.6 Portal hypertension; E87.1 Hypo-osmolality and hyponatremia; D68.59 Other primary thrombophilia; Z90.49 Acquired absence of other specified parts of digestive tract; Z87.891 Personal history of nicotine dependence; K74.60 Unspecified cirrhosis of liver; E87.5 Hyperkalemia; I95.9 Hypotension, unspecified; R80.9 Proteinuria, unspecified; E87.70 Fluid overload, unspecified; R13.10 Dysphagia, unspecified; I46.9 Cardiac arrest, cause unspecified; Z68.33 Body mass index [BMI] 33.0-33.9, adult
CPT/HCPCS: 36245; 36555; 36569; 36600; 51702; 76700; 76937; 80074; 82728; 82805; 83605; 83615; 83735; 84100; 84132; 84145; 85379; 85651; 86140; 86850; 86900; 86901; 86927; 87040; 87081; 87086; 87340; 92950; 93005; 93306; 93970; 94002; 94003; 99291; C9113; G0378; J0171; J0282; J0456; J0692; J0878; J1265; J1644; J1956; J2185; J2250; J2370; J2704; J3010; J3490; J7030; J7040; J7050; J7060